=== PATIENT | female | born 1980 | race Caucasian/White ===

== ENCOUNTER 2018-10-22 18:43 | Inpatient (IN) | payer BC ==
[2018-10-22 19:16] VITALS: BMI 36.8
[2018-10-22] MEDS ORDERED: hydrALAZINE 20 MG/ML VIAL SLOW IVP PRN ×2 (19:30→20:14)
--- NOTE | 2018-10-22 19:33 | PDOC.LDHP ---
Labor and Delivery H&P Chief complaint: other (Possible SROM at 1230) HPI: Patient of Dr Ramirez Triage A 38 yo G1 with possible LOF since noon. No CTX, no VB, good FM. Review of Systems: comlete ROS performed and as per HPI Current gestational age (weeks): 38 Due date: 11/05/18 Dating criteria: last menstrual period Grav: 1 Current complications: none Abnormal US findings: No Past Medical History: Mild spina bifida Current medications: pre-reinier vitamins Previous surgical history: other (Breast augmentation. Hernia surgery) Allergies/Adverse Reactions: Allergies Allergy/AdvReac Type Severity Reaction Status Date / Time No Known Drug Allergies Allergy Verified 10/22/18 19:10 Social history: none - Physical Exam Vital signs reviewed and normal: yes (130/89 max BP, afebrile) General: NAD Heart: RRR Lungs: CTAB Abdomen: gravid FHT: category 1 Echelon contractions every: none - Assessment Possible ROM at 38 weeks, G1...pateint with mild spina bifida hx. - Plan Plan: other (SSE pending; sent. Serial BPs)
[2018-10-22 19:59] LABS: Amnisure Internal Control QC ACCEPTABLE (ACCEPTABLE); Amnisure Test RUPTURE DETECTED (No Rupture)
--- NOTE | 2018-10-22 20:11 | PDOC.LDHP ---
Labor and Delivery H&P Chief complaint: loss of fluid HPI: CORRECTED H&P Patient of Dr Alexander Patient here for possible LOF since this AM (no recent sex) 38 yo with pos LOF today, no CTX...was 2cm yesterday. No VB, no fevers, No MCDERMOTT. Review of Systems: complete ROS performed and as per HPI Current gestational age (weeks): 38 Due date: 11/01/18 Dating criteria: last menstrual period Grav: 3 Para: 2 OB History Details: x 2 Current complications: none Abnormal US findings: No Past Medical History: none Current medications: pre-reinier vitamins Previous surgical history: other (wisdom, lithotripsy) Allergies/Adverse Reactions: Allergies Allergy/AdvReac Type Severity Reaction Status Date / Time No Known Drug Allergies Allergy Verified 10/22/18 19:10
[2018-10-22] MEDS ORDERED: Butorphanol Tartrate 1 MG/ML VIAL SLOW IVP PRN (20:14)
[2018-10-22] MEDS ORDERED: Ondansetron PF 4 MG/2 ML Vial IVP PRN (20:14)
[2018-10-22] MEDS ORDERED: HYDROcodone/Acetaminophen 5/325 mg Tablet PO PRN ×2 (20:14)
[2018-10-22] MEDS ORDERED: NS / Oxytocin 40 units/1000ml 1,000 ML IV PRN (20:14)
[2018-10-22] MEDS ORDERED: Promethazine HCl 25 MG/ML VIAL IM PRN (20:14)
[2018-10-22] MEDS ORDERED: Lidocaine 1% (PF) 30 ML VIAL SC PRN (20:14)
[2018-10-22] MEDS ORDERED: Ibuprofen 800 MG TAB PO PRN (20:14)
--- NOTE | 2018-10-22 20:17 | PDOC.EVN ---
Event Note - Event Note Event Note: SSE: Clear fluid noted with SSE. positive
[2018-10-22] MEDS: Lactated Ringer's 1,000 ML IV SCH (20:30)
[2018-10-22 21:09] LABS: Hemoglobin 13.1 g/dL (12.0-16.0); Mean Corpuscular HGB CONC 34.1 g/dL (32.0-36.0); Mean Corpuscular Hemoglobin 31.1 pg (27.0-31.0); Mean Corpuscular Volume 91.3 fL (78.0-98.0); Mean Platelet Volume 8.5 fL (7.4-10.4); Platelet Count 218 thou/uL (130-400); Red Blood Cell (RBC) Count 4.21 mill/uL (4.20-5.40)
[2018-10-22 21:31] LABS: ALT (SGPT) 32 U/L (8-55); AST (SGOT) 29 U/L (5-34); Albumin 3.4 g/dL (3.5-5.0); Alkaline Phosphatase 141 U/L (40-150); Anion Gap 11 mmol/L (10-20); BUN (Urea Nitrogen) 5 mg/dL (7.0-18.7); Bilirubin, Total 0.3 mg/dL (0.2-1.2); Calc. Creatinine Clearance 219 mL/min (70-130); Carbon Dioxide 21 mmol/L (22-29); Chloride 107 mmol/L (98-107); Estimated GFR-MDRD Greater than 90; Globulin 3.3 g/dL (2.4-3.5); Glucose 95 mg/dL (70-105); Potassium 3.5 mmol/L (3.5-5.1); Protein, Total 6.7 g/dL (6.0-8.3); Sodium 135 mmol/L (136-145)
[2018-10-22 21:49] LABS: Syphilis Antibody Nonreactive (Nonreactive); Syphilis Antibody Index 0.08 S/CO (<1.00 Non-Reactive)
[2018-10-22 22:43] LABS: HBSAg Index 0.38 S/CO (0-0.99); HIV (1/2) Antibody/Antigen Non-Reactive (NonReactive); HIV 1/2 INDEX 0.08 S/CO (<1.00); Hep B Surf Ag Non-Reactive S/CO (NonReactive)
[2018-10-23] MEDS ORDERED: NS w/ Oxytocin 10 units 500 ML ONE (02:44)
[2018-10-23] MEDS: Lactated Ringer's 1,000 ML IV SCH (04:10)
[2018-10-23] MEDS ORDERED: Fentanyl 4 mcg/Bup 0.1% Cadd 100 ML ONE (05:22)
[2018-10-23] MEDS ORDERED: Lidocaine 1.5%/Epinephrine 1:200,000 5 ML AMPUL IJ ONE (05:23)
[2018-10-23] MEDS ORDERED: Acetaminophen 325 MG TAB PO PRN (05:52)
[2018-10-23] MEDS ORDERED: Lactated Ringer's 500 ML IV PRN (05:52)
[2018-10-23] MEDS ORDERED: Promethazine HCl 25 MG/ML VIAL IM PRN (05:52)
[2018-10-23] MEDS ORDERED: ePHEDrine/0.9% NaCl/PF SYRINGE 50 mg/10 ml SLOW IVP PRN (05:52)
[2018-10-23] MEDS ORDERED: Naloxone HCl 0.4 mg/ml Vial IVP PRN ×2 (05:52)
[2018-10-23] MEDS ORDERED: Ondansetron PF 4 MG/2 ML Vial IVP PRN ×2 (05:52→09:29)
[2018-10-23] MEDS ORDERED: diphenhydrAMINE 50 MG/ML VIAL IVP PRN (05:52)
[2018-10-23] MEDS ORDERED: Fentanyl 4 mcg/Bupivacaine 0.1% Cassette 100 ML EPIDURAL SCH (06:00)
[2018-10-23] MEDS ORDERED: Communication Order-Pharmacy FS SCH (06:00)
[2018-10-23] MEDS ORDERED: Bicitra 30 ML UDCUP ONE (08:41)
[2018-10-23] MEDS ORDERED: diphenhydrAMINE 25 MG CAP PO PRN (09:29)
[2018-10-23] MEDS ORDERED: Lanolin Ointment 7 GM TUBE TOP PRN (09:29)
[2018-10-23] MEDS ORDERED: Acetaminophen/Codeine 30-300mg Tablet PO PRN ×2 (09:29)
[2018-10-23] MEDS ORDERED: Misoprostol 200 MCG TAB VAG PRN (09:29)
[2018-10-23] MEDS ORDERED: Preparation H Ointment 28 GM TUBE PR PRN (09:29)
[2018-10-23] MEDS ORDERED: Zolpidem Tartrate 5 MG TAB PO PRN (09:29)
[2018-10-23] MEDS ORDERED: Adacel (T-DAP) 0.5 ML SYRINGE IM ONE (09:29)
[2018-10-23] MEDS ORDERED: hydrALAZINE 20 MG/ML VIAL SLOW IVP PRN (09:29)
[2018-10-23] MEDS ORDERED: Milk Of Magnesia 30 ML UDCUP PO PRN (09:29)
[2018-10-23] MEDS ORDERED: Bisacodyl 10 MG SUPP PR PRN (09:29)
[2018-10-23] MEDS ORDERED: NS / Oxytocin 40 units/1000ml 1,000 ML IV SCH (09:30)
[2018-10-23] MEDS ORDERED: Ampicillin 2 GM in Sodium Chloride 0.9% 100 ML IVPB SCH (10:00)
[2018-10-23] MEDS: Ibuprofen 800 MG TAB PO SCH ×2 (13:55→21:48)
[2018-10-23] MEDS: Ferrous Sulfate 325 MG TAB PO SCH (14:54)
[2018-10-23] MEDS: Docusate Calcium (SURFAK) 240 MG CAP PO SCH (21:47)
[2018-10-24] MEDS: Ibuprofen 800 MG TAB PO SCH ×3 (05:47→21:02)
[2018-10-24] MEDS: Prenatal Vitamin 1 TAB PO SCH (09:10)
[2018-10-24] MEDS: Docusate Calcium (SURFAK) 240 MG CAP PO SCH ×3 (09:11→21:02)
[2018-10-24] MEDS: Ferrous Sulfate 325 MG TAB PO SCH ×2 (14:04→18:57)
[2018-10-24 20:31] VITALS: TEMP 98.3
[2018-10-25] MEDS: Ibuprofen 800 MG TAB PO SCH (06:29)
[2018-10-25 08:23] VITALS: BP 132/79
[2018-10-25] MEDS: Prenatal Vitamin 1 TAB PO SCH (08:23)
[2018-10-25] MEDS: Docusate Calcium (SURFAK) 240 MG CAP PO SCH (08:23)
[2018-10-25] MEDS: Ferrous Sulfate 325 MG TAB PO SCH (08:23)
== END 2018-10-25 10:20 | disposition home or self-care (01) | DRG 807 ==
LOC: L&D/OP 18:43 → L&D 20:16 → 3SW 10-23 12:16
PROVIDERS: ADMIT Obstetrics & Gynecology; ATTEND Obstetrics & Gynecology
PROC: 10E0XZZ Delivery of Products of Conception, External Approach (ICD-10-PCS; principal; 2018-10-22)
DX: O63.0 Prolonged first stage (of labor) (principal); Z37.0 Single live birth; O42.92 Full-term premature rupture of membranes, unspecified as to length of time between rupture and onset of labor; O70.1 Second degree perineal laceration during delivery; Z3A.39 39 weeks gestation of pregnancy
CPT/HCPCS: 36415; 51702; 80053; 84112; 85027; 86780; 86850; 86900; 86901; 87340; 87389; 90715; 99285; J2590; J3490